=== PATIENT | female | born 1965 | race Caucasian/White ===

== ENCOUNTER 2023-11-27 13:50 | Inpatient (IN) ==
--- NOTE | 2023-11-27 14:19 | Emergency Department Note ---
Impression & Plan SBO (small bowel obstruction) ED Provider Note Name: KAREN MUELLER Age: 58 Sex: Female Arrives Via: Walk-In Informant: Patient ED Provider: Lalo Emmanuel MD Chief Complaint: Abdominal discomfort Impression: As per impressions above Medical Decision Making: Pleasant 58-year-old female with a history of Crohn's disease though not on any suppressive medications arrives for evaluation of severe abdominal pain. She does have remote history of bowel resections. On examination she has mild epigastric tenderness palpation hyperactive bowel sounds is mildly dehydrated. CT abdomen pelvis reveals partial small bowel obstruction versus ileus. Given her hyperactive bowel sounds and symptoms and history I think this is more consistent with a partial bowel obstruction. She was given some IV fluids though due to no vomiting we will hold off on NG tube at this time. Hospitalist consulted for further management. Triage/Nursing Notes reviewed by Me Differential:Gastroenteritis, food borne illness, infections, appendicitis, diverticulitis, inflammatory bowel disease, obstruction, GI bleed, biliary pathology, volvulus, as well as other pathologies. Vital Signs: reviewed and remarkable for no significant abnormalities Interventions: Normal Saline bolus 1 L IV Labs:ED labs Reviewed by me and remarkable for no significant abnormalities Imaging:CT of the abdomen pelvis without contrast as per my informal interpretation reveals small bowel obstruction. Radiologist notes likely small bowel obstruction without transition point and possibly ileus. Consults:[facility] hospitalist team was consulted and after discussion they will bring patient in. Plan: Disposition:Hospitalization. Condition: Good History of Present Illness: 58-year-old female arrives for evaluation of abdominal pain. Patient with 1 to 2 days of gradually worsening abdominal pain. Primarily upper abdomen and cramping in nature. Comes in waves. Overnight she was having severe cramping and stabbing pain. Associated with nausea and dry heaves. Notes she has had some diarrhea bowel movements the last few days as well but that is typical for her to have diarrhea. She denies any fevers, chills, rashes, syncope, chest pain, shortness of breath, other concerning signs or symptoms. She has a long history of Crohn's disease issues with bowel obstruction and small bowel removal many years ago. She has not been on any medications recently and had done quite well. Has not had any flareups recently either. No medications prior to arrival. Past Medical History:Crohn's disease Home Medications:No daily medications Allergies:No known drug allergy Vitals:Blood Pressure: 136/83, Pulse 108, RR 16, T 36.2C, O2 98% on RA Physical Exam: GENERAL: Patient is uncomfortable appearing and in mild distress. Dehydrated. Declines pain medications RESPIRATORY: No dyspnea. Clear to auscultation and equal bilaterally. CARDIOVASCULAR: Regular rate and rhythm.No murmur appreciated. GASTROINTESTINAL: Hyperactive bowel sounds over the upper abdomen with some mild tenderness to palpation. No peritonitis. Mild tenderness palpation in the left lower quadrant as well. EXTREMITIES: Normal motion all extremities, no cyanosis, no edema. NEUROLOGIC: Alert and oriented. No focal neurologic deficits appreciated SKIN: No rash, no jaundice, no diaphoresis. PSYCH: Appropriate GCS: 15 ED Course: Times/Reassessments: Patient's nausea is improved mild improvement in heart rate as well. No significant abdominal pain at this time. Lalo Emmanuel MD Past Med/Surg History Medical History Depression with anxiety HLD (hyperlipidemia) Migraine Crohn disease Surgical History Hx of myringotomy Hx of appendectomy Hx of unilateral oophorectomy History of bowel resection x 2 Family History Mother Coronary heart disease Father Hypertension Social History Smoking Status: Never smoker Hx Alcohol Use: No Hx Substance Use: No Preferred Language: Greek Communication Ability: Effective Electric Organ As[employer]er Required: No Beliefs That Will Affect Care: None Current Living Situation: Spouse current occupational status: employed current occupation: [employer] Feels Safe at Home: Yes Safety Concerns: Feels Safe At This Time Allergies Allergies Allergy/AdvReac Type Severity Reaction Status Date / Time Penicillins AdvReac Intermediate Vomiting Verified 11/27/23 16:25 Home Meds Home Medications Medication Instructions Recorded Confirmed amitriptyline 50 mg tablet 50 mg PO HS 11/27/23 11/27/23 atorvastatin 40 mg tablet 40 mg PO HS 11/27/23 11/27/23 gabapentin 100 mg capsule 300 mg PO HS 11/27/23 11/27/23 sertraline 100 mg tablet 100 mg PO HS 11/27/23 11/27/23 topiramate 100 mg capsule,extended 100 mg PO HS 11/27/23 11/27/23 release 24 hr venlafaxine 75 mg capsule,extended 75 mg PO HS 11/27/23 11/27/23 release 24 hr Results & Data (ED) Vital Signs Vital Signs - 24 hr 11/27/23 14:03 Pulse Rate 108 H Respiratory Rate 16 Respiratory Effort / Characteristics Non-Labored Accessory Muscle Use Respiratory Depth Normal Blood Pressure 136/83 Blood Pressure Mean 100 Blood Pressure Position Sitting Pulse Oximetry 98 Oxygen Delivery Method Room Air Sepsis Recent Fever Within 48 Hours No Sepsis New/Unexplained Change in Mental Status N/A Sepsis Action Taken by Nursing No Action Required Laboratory Data 11/28/23 06:32 11/28/23 06:32 Lab Results 11/27/23 11/27/23 Range/Units 14:31 14:35 WBC 10.47 (4.8-10.8) K/ul RBC 4.89 (4.20-5.40) M/uL Hgb 14.1 (12.0-16.0) g/dl POC Hgb 15.0 (12.0-16.0) g/dl Hct 44.2 (37.0-47.0) % POC Hct 44 (37-47) % MCV 90.4 (80.0-100.0) fL MCH 28.8 (25.0-34.0) pg MCHC 31.9 L (32.0-36.0) g/dL RDW Std Deviation 45.4 (36.4-46.3) fL RDW Coeff of Elvia 13.6 (11.5-14.5) % Plt Count 343 (130-400) K/uL MPV 9.5 (9.4-12.4) fL Immature Gran % (Auto) 0.4 % Neut % (Auto) 85.7 % Lymph % (Auto) 5.9 % [place] % (Auto) 5.6 % Eos % (Auto) 1.9 % Baso % (Auto) 0.5 % Neut # (Auto) 8.97 H (1.40-6.50) K/uL Lymph # (Auto) 0.62 L (1.20-3.40) K/uL [place] # (Auto) 0.59 (0.11-0.59) K/uL Eos # (Auto) 0.20 (0.00-0.50) K/uL Baso # (Auto) 0.05 (0.00-0.20) K/uL Immature Gran # (Auto) 0.04 (0.01-0.20) K/uL ESR 17 (0-30) mm/hr POC Sodium 144 (135-144) mmol/L Sodium 142 (136-145) mmol/L POC Potassium 3.8 (3.3-5.0) mmol/L Potassium 3.8 (3.5-5.1) mmol/L POC Chloride 107 (101-112) mmol/L Chloride 108 H (98-107) mmol/L Carbon Dioxide 25 (21-32) mmol/L POC Total CO2 25 (24-31) mmol/L Anion Gap 9 (3-11) POC Anion Gap 17.0 (16-25) mmol/L POC BUN 20 H (7-18) mg/dl BUN 21 (6-23) mg/dl Creatinine 1.05 (0.6-1.2) mg/dl POC Creatinine 1.1 (0.6-1.3) mg/dl Est Cr Clr Drug Dosing 46.2 ml/min Est GFR ( Amer) 67.8 ml/min Est GFR (Non-Af Amer) 58.5 ml/min BUN/Creatinine Ratio 20.0 (10-20) Glucose 130 H (70-99(Fasting)) mg/dl POC Glucose (other) 137 H (70-99) mg/dl Calcium 9.9 (8.6-10.3) mg/dl POC Ioniz Calcium Chelsey 1.28 (1.12-1.32) mmol/l Magnesium 1.9 (1.7-2.4) mg/dl Total Bilirubin 0.4 (0.2-1.0) mg/dl Direct Bilirubin 0.1 (0-0.2) mg/dl AST 21 (13-39) U/L ALT 26 (7-52) U/L Alkaline Phosphatase 90 (34-104) U/L C-Reactive Protein 0.66 H (0-0.5) mg/dl Total Protein 7.7 (6.0-8.3) gm/dl Albumin 4.7 (3.4-5.0) gm/dl Lipase 15 (11-82) U/L Administered Medications Amitriptyline HCl (Amitriptyline Hcl 50 Mg Tab) 50 mg PO HS JELANI Stop: 12/27/23 20:59 Last Admin: 11/27/23 19:38 Dose: 50 mg Documented By: RAVINDRA Atorvastatin Calcium (Atorvastatin 40 Mg Tab) 40 mg PO HS JELANI Stop: 12/27/23 20:59 Last Admin: 11/27/23 19:38 Dose: 40 mg Documented By: RAVINDRA Enoxaparin Sodium (Enoxaparin Inj 40 Mg/0.4 Ml Syr) 40 mg SQ Q24H JELANI Stop: 12/27/23 20:59 Last Admin: 11/27/23 19:38 Dose: 40 mg Documented By: RAVINDRA Gabapentin (Gabapentin 300 Mg Cap) 300 mg PO HS JELANI Stop: 12/27/23 20:59 Last Admin: 11/27/23 19:38 Dose: 300 mg Documented By: RAVINDRA Potassium Chloride/Sodium Chloride (Normal Saline W/20 Meq Kcl) 20 meq in 1,000 mls @ 100 mls/hr IV .Q10H JELANI; Protocol Stop: 12/27/23 18:32 Last Admin: 11/28/23 14:53 Dose: 100 mls/hr Documented By: Infusion: 11/28/23 14:13 Dose: Infused Documented By: Admin: 11/28/23 04:13 Dose: 100 mls/hr Documented By: Infusion: 11/28/23 04:13 Dose: Infused Documented By: Admin: 11/27/23 19:35 Dose: 100 mls/hr Documented By: RAVINDRA Acetaminophen (Ofirmev) 1,000 mg in 100 mls @ 400 mls/hr IV Q8H PRN PRN Reason: Mild-Mod Pain (Scale 1-6) Stop: 11/30/23 18:32 Last Infusion: 11/28/23 07:54 Dose: Infused Documented By: Admin: 11/28/23 07:39 Dose: 400 mls/hr Documented By: BO Ketorolac Tromethamine (Ketorolac Tromethamine 15 Mg/Ml Vial) 15 mg IV Q6H PRN PRN Reason: Headache or Pain Stop: 12/03/23 11:23 Last Admin: 11/28/23 11:56 Dose: 15 mg Documented By: BO Miscellaneous (Order Awaiting Action [Topiramate 100 Mg Capsule,Extended Release 24hr]) 1 each N/A QS JELANI Stop: 12/28/23 00:00 Last Admin: 11/28/23 14:56 Dose: Not Given Documented By: Admin: 11/28/23 07:09 Dose: Not Given Documented By: Admin: 11/27/23 23:24 Dose: Not Given Documented By: EGS Sertraline HCl (Sertraline Hcl 100 Mg Tablet) 100 mg PO [facility] Stop: 12/27/23 20:59 Last Admin: 11/27/23 19:38 Dose: 100 mg Documented By: EGCristofer Venlafaxine HCl (Venlafaxine Hcl Xr 75 Mg Capxr) 75 mg PO [facility] Stop: 12/27/23 20:59 Last Admin: 11/27/23 19:38 Dose: 75 mg Documented By: EGCristofer Discontinued Medications Sodium Chloride (Nss) 1,000 mls @ 999 mls/hr IV .Q1H1M ONE Stop: 11/27/23 15:17 Last Infusion: 11/27/23 15:41 Dose: Infused Documented By: Admin: 11/27/23 14:38 Dose: 999 mls/hr Documented By: SALVADOR Ioversol (Optiray 320 100ml) 94 ml IV ONCE ONE Stop: 11/27/23 14:52 Last Admin: 11/27/23 14:51 Dose: 94 ml Documented By: WILMA Discharge Plan Visit Data Chief Complaint: Abdominal Pain Stated Complaint: ABDOMINAL CRAMPING ED Provider: Lalo Emmanuel Discharge Problem: SBO (small bowel obstruction) Patient Disposition: Admitted As Inpatient Discharge Instructions Interventions: ED Discharge Assessment Last Done: 11/27/23 18:05
[2023-11-27] MEDS: SODIUM CHLORIDE 0.9% 1,000 ML IV ONE (14:38)
[2023-11-27 14:45] LABS: Basophils # (auto) 0.05 K/uL (0.00-0.20); Basophils % (auto) 0.5 %; Eosinophils % (auto) 1.9 %; Hematocrit (blood only) 44.2 % (37.0-47.0); Hemoglobin 14.1 g/dl (12.0-16.0); Immature Granulocytes # (auto) 0.04 K/uL (0.01-0.20); Immature Granulocytes % (auto) 0.4 %; Lymphocytes # (auto) 0.62 K/uL (1.20-3.40); Lymphocytes % (auto) 5.9 %; Mean Corpuscular Hemoglobin 28.8 pg (25.0-34.0); Mean Corpuscular Hgb Conc 31.9 g/dL (32.0-36.0); Mean Corpuscular Volume 90.4 fL (80.0-100.0); Mean Platelet Volume 9.5 fL (9.4-12.4); Monocytes # (auto) 0.59 K/uL (0.11-0.59); Monocytes % (auto) 5.6 %; Neutrophils # (auto) 8.97 K/uL (1.40-6.50); Neutrophils % (auto) 85.7 %; Platelet Count 343 K/uL (130-400); RDW Coefficient of Variation 13.6 % (11.5-14.5); RDW Standard Deviation 45.4 fL (36.4-46.3); Red Blood Count 4.89 M/uL (4.20-5.40); White Blood Count 10.47 K/ul (4.8-10.8)
[2023-11-27 14:50] LABS: iSTAT Creatinine 1.1 mg/dl (0.6-1.3); iSTAT Ionized Calcium 1.28 mmol/l (1.12-1.32); iSTAT Potassium 3.8 mmol/L (3.3-5.0)
[2023-11-27] MEDS: OPTIRAY 320 100ml IV ONE (14:51)
[2023-11-27 15:10] LABS: Albumin Level 4.7 gm/dl (3.4-5.0); Bilirubin Direct 0.1 mg/dl (0-0.2); Bilirubin,Total 0.4 mg/dl (0.2-1.0); C Reactive Protein 0.66 mg/dl (0-0.5); Calcium 9.9 mg/dl (8.6-10.3); Creatinine Clr Calc Pharmacy 46.2 ml/min; Est GFR (African American) 67.8 ml/min; Est GFR (Non-African American) 58.5 ml/min; Magnesium 1.9 mg/dl (1.7-2.4); Potassium 3.8 mmol/L (3.5-5.1); Total Protein 7.7 gm/dl (6.0-8.3)
--- NOTE | 2023-11-27 15:28 | CT Scan Report ---
CT abd pelvis IV con only CLINICAL HISTORY: diffuse upper abd pain, vomiting TECHNIQUE: Helical axial images of the abdomen and pelvis were obtained and displayed. Automated dose lowering techniques and/or adjustment according to patient size were utilized for this exam. This e xam was performed with intravenous contrast. CT DOSE: 541.14 mGy.cm COMPARISON: None available at the time of this dictation. FINDINGS: Lower chest: Bronchial wall thickening is seen. Liver: Unremarkable. No focal lesions are seen. Gallbladder and biliary tree: No calcified gallstones. Normal caliber wall. No intra- or extrahepatic biliary ductal dilation. Pancreas: Unremarkable, no focal lesions. Spleen: Splenule is incidentally noted. Adrenals: Unremarkable. Kidneys and ureters: Subcentimeter hypodensities are too small to characterize. There is a stone in t he left proximal ureter measuring 3 mm. No significant hydronephrosis is seen. Bladder: Limited evaluation due to underdistention. Reproductive organs: Unremarkable. Bowel: A hiatal hernia is seen. Post surgical changes of colonic resection are seen. There are multip le mildly prominent loops of small bowel without sharp transition point. Lymph nodes Retroperitoneal: Unremarkable. Pelvic: Unremarkable. Mesenteric: Unremarkable. Peritoneum: Normal. Vessels: Unremarkable. Abdominal wall: Unremarkable. Bones: Degenerative changes in the visualized spine. IMPRESSION: 1. Mildly prominent loops of small bowel throughout without sharp transition point. Findings may rep resent ileus versus partial small bowel obstruction. Of note, the large bowel is not under distended. 2. Bronchial wall thickening may represent infectious/inflammatory airways disease. ACT 112: Negative or not required by law. Electronically signed by: Maxwell Polanco M.D. 11/27/2023 3:26 PM
--- NOTE | 2023-11-27 16:43 | History & Physical Report ---
Date of Service November 27, 2023 Assessment & Plan (1) SBO (small bowel obstruction): (2) Crohn disease: (3) History of bowel resection: Plan This is a 58-year-old female who has a significant past medical history of hyperlipidemia, depression with anxiety and history of migraine who presents to ED secondary to abdominal pain x 2 to 3 days. --CT a/p: IMPRESSION: 1. Mildly prominent loops of small bowel throughout without sharp transition point. Findings may represent ileus versus partial small bowel obstruction. Of note, the large bowel is not under distended. SBO Crohn's disease History of bowel resection x 2, last in her 30s Admit to [facility] Consult general surgery Bowel rest N.p.o., IV fluid IV Tylenol for mild to moderate pain, IV morphine for severe pain She is passing loose stool which is chronic for her, but has not passed flatus No indication for NG tube at this time Currently she is not established with gastroenterology and has not received any treatment for her Crohn's for several years due to no issues Hyperlipidemia Chronic, stable History of migraines Continue Lamictal, amitriptyline Depression with anxiety Chronic, stable Continue Effexor and Zoloft DVT prophylaxis: Subcu Lovenox Full code PCP: Debby Moore with [facility] Dispo: Admit to medical Patient was seen and examined in collaboration with Dr. Harris, please see addendum A total of 60 minutes was spent coordinating, documenting, and providing care for this patient excluding time spent in the performance of separately billed services. This included personally viewing all current laboratories and imaging studies, medication reconciliation, outpatient chart review, and discussion with specialists. History of Present Illness Chief Complaint: Abd pain x 2-3 days. Primary Care Provider: Debby Moore This is a 58-year-old female who has a significant past medical history of hyperlipidemia, depression with anxiety and history of migraine who presents to ED secondary to abdominal pain x 2 to 3 days. Of significance she has prior history of Crohn's disease. She currently does not follow with a seat joiner or surgeon as this has been resolved for several years. She has prior history of bowel resection x 2, the last being over 30 years ago and done at [facility]. Due to her bowel resections she does have chronic diarrhea. She states pain is located all over her abdomen but worse on the left side. Pain waxes and wanes and describes it as, "being in labor." She has not passed gas over the last 2 days but she is moving her bowels as it is chronically watery. Her last bowel movement was around 11 AM. She feels her abdomen is overall distended. She does complain of being nauseated. She did make her cell vomit x 1 as she felt this would make her feel better. She complains of being chilled and sweats but denies any documented fever. She denies lightheadedness, dizziness, chest pain, shortness with, cough, URI sympt oms, melena or hematochezia. In ED patient remained hemodynamically stable. Her CBC and CMP was generally unremarkable. CT abdomen pelvis revealed mildly prominent loops of small bowel throughout without sharp transition point which may represent an ileus versus partial small bowel obstruction. Also noted is bronchial wall thickening may represent infectious/inflammatory airway disease. She denies any respiratory complaint. Allergies Allergy/AdvReac Type Severity Reaction Status Date / Time Penicillins AdvReac Intermediate Vomiting Verified 11/27/23 16:25 Home Medications Medication Instructions Recorded Confirmed Type amitriptyline 50 mg tablet 50 mg PO HS 11/27/23 11/27/23 History atorvastatin 40 mg tablet 40 mg PO HS 11/27/23 11/27/23 History gabapentin 100 mg capsule 300 mg PO HS 11/27/23 11/27/23 History sertraline 100 mg tablet 100 mg PO HS 11/27/23 11/27/23 History topiramate 100 mg capsule,extended 100 mg PO HS 11/27/23 11/27/23 History release 24 hr venlafaxine 75 mg capsule,extended 75 mg PO HS 11/27/23 11/27/23 History release 24 hr Past Med/Surg History Medical History (Updated 11/27/23 @ 17:00 by Nicki Uriostegui PA-C) Depression with anxiety HLD (hyperlipidemia) Migraine Crohn disease Surgical History (Updated 11/27/23 @ 17:00 by Nicki Uriostegui PA-C) Hx of myringotomy Hx of appendectomy Hx of unilateral oophorectomy History of bowel resection x 2 Family History (Updated 11/27/23 @ 16:42 by Nicki Uriostegui PA-C) Mother Coronary heart disease Father Hypertension Social History (Updated 11/27/23 @ 16:41 by Nicki Uriostegui PA-C) Smoking Status: Never smoker Hx Alcohol Use: Yes Hx Substance Use: No Preferred Language: Lao Communication Ability: Effective Current Living Situation: Spouse current occupational status: employed current occupation: [employer] Feels Safe at Home: Yes Review of Systems Review of Systems: All systems reviewed & are unremarkable except as noted in HPI & below Physical Exam Physical Exam: Constitutional: WD/WN, vitals as above, NAD, sitting up in bed, pleasant, conversing easily Head: Normocephalic, Atraumatic Eyes: PERRL, conjunctivae normal, anicteric sclerae ENMT: external ear and nose normal, oropharynx normal Neck: trachea midline, no thyromegaly normal visual inspection Respiratory: normal respiratory effort, lungs clear to auscultation, no wheeze, rales, rhonchi. Normal insp/exp effort, no accessory muscle use Cardiovascular: RRR, no murmur, no edema Vessels: no JVD or carotid bruit Chest: normal inspection of chest Abdomen: Absent bowel sounds, distended abdomen, TTP, no rebound, no guarding Musculoskeletal: no cyanosis or clubbing, extremities motor strength 5/5 Skin: no rashes, warm and dry normal turgor Neurologic: PERRL, EOMI, accommodation nl, no face palsy, no dysarthria CN's II-XI intact bilaterally and moves all extremities Psychiatric: A+Ox3, euthymic affect Lymphatic: no cervical or axillary lymphadenopathy : deferred Results & Data Results & Data Vital Signs (Past 12 Hours) Vital Signs Pulse Pulse Resp BP BP Pulse Ox O2 Del Method 11/27/23 16:10 96 H 18 134/85 95 Room Air 11/27/23 15:30 99 H 11/27/23 14:39 102 H 21 125/80 98 Room Air 11/27/23 14:03 108 H 16 136/83 98 Room Air Diagnostic Findings Abdomen/Pelvis CT 11/27/23 14:16 CT abd pelvis IV con only CLINICAL HISTORY: diffuse upper abd pain, vomiting TECHNIQUE: Helical axial images of the abdomen and pelvis were obtained and displayed. Automated dose lowering techniques and/or adjustment according to patient size were utilized for this exam. This exam was performed with intravenous contrast. CT DOSE: 541.14 mGy.cm COMPARISON: None available at the time of this dictation. FINDINGS: Lower chest: Bronchial wall thickening is seen. Liver: Unremarkable. No focal lesions are seen. Gallbladder and biliary tree: No calcified gallstones. Normal caliber wall. No intra- or extrahepatic biliary ductal dilation. Pancreas: Unremarkable, no focal lesions. Spleen: Splenule is incidentally noted. Adrenals: Unremarkable. Kidneys and ureters: Subcentimeter hypodensities are too small to characterize. There is a stone in the left proximal ureter measuring 3 mm. No significant hydronephrosis is seen. Bladder: Limited evaluation due to underdistention. Reproductive organs: Unremarkable. Bowel: A hiatal hernia is seen. Post surgical changes of colonic resection are seen. There are multiple mildly prominent loops of small bowel without sharp transition point. Lymph nodes Retroperitoneal: Unremarkable. Pelvic: Unremarkable. Mesenteric: Unremarkable. Peritoneum: Normal. Vessels: Unremarkable. Abdominal wall: Unremarkable. Bones: Degenerative changes in the visualized spine. IMPRESSION: 1. Mildly prominent loops of small bowel throughout without sharp transition point. Findings may represent ileus versus partial small bowel obstruction. Of note, the large bowel is not under distended. 2. Bronchial wall thickening may represent infectious/inflammatory airways disease. ACT 112: Negative or not required by law. Electronically signed by: Maxwell Polanco M.D. 11/27/2023 3:26 PM Medications Administered Medication List Discontinued Medications Sodium Chloride (Nss) 1,000 mls @ 999 mls/hr IV .Q1H1M ONE Stop: 11/27/23 15:17 Last Infusion: 11/27/23 15:41 Dose: Infused Documented By: Admin: 11/27/23 14:38 Dose: 999 mls/hr Documented By: SALVADOR Ioversol (Optiray 320 100ml) 94 ml IV ONCE ONE Stop: 11/27/23 14:52 Last Admin: 11/27/23 14:51 Dose: 94 ml Documented By: WILMA COVID-19 Results Results COVID-19 Adm Lab Results: RBC 4.89 M/uL (4.20-5.40) 11/27/23 WBC 10.47 K/ul (4.8-10.8) 11/27/23 Hgb 14.1 g/dl (12.0-16.0) 11/27/23 Hct 44.2 % (37.0-47.0) 11/27/23 Plt Count 343 K/uL (130-400) 11/27/23 Neutrophils (%) (Auto) 85.7 % 11/27/23 Lymphocytes (%) (Auto) 5.9 % 11/27/23 Monocytes # (Auto) 0.59 K/uL (0.11-0.59) 11/27/23 Eosinophils # (Auto) 0.20 K/uL (0.00-0.50) 11/27/23 Immature Granulocyte % (Auto) 0.4 % 11/27/23 Neutrophils # (Auto) 8.97 K/uL (1.40-6.50) H 11/27/23 Lymphocytes # (Auto) 0.62 K/uL (1.20-3.40) L 11/27/23 Monocytes # (Auto) 0.59 K/uL (0.11-0.59) 11/27/23 Eosinophils # (Auto) 0.20 K/uL (0.00-0.50) 11/27/23 Basophils # (Auto) 0.05 K/uL (0.00-0.20) 11/27/23 Immature Granulocyte # (Auto) 0.04 K/uL (0.01-0.20) 4 Na 142 mmol/L (136-145) 11/27/23 K 3.8 mmol/L (3.5-5.1) 11/27/23 Cl 108 mmol/L (98-107) H 11/27/23 CO2 25 mmol/L (21-32) 11/27/23 Anion Gap 9 (3-11) 11/27/23 BUN 21 mg/dl (6-23) 11/27/23 Creatinine 1.05 mg/dl (0.6-1.2) 11/27/23 BUN/Creatinine Ratio 20.0 (10-20) 11/27/23 Glucose Level 130 mg/dl (70-99(Fasting)) H 11/27/23 Ca 9.9 mg/dl (8.6-10.3) 11/27/23 Total Bilirubin 0.4 mg/dl (0.2-1.0) 11/27/23 Direct Bilirubin 0.1 mg/dl (0-0.2) 11/27/23 AST/SGOT 21 U/L (13-39) 11/27/23 ALT/SGPT 26 U/L (7-52) 11/27/23 Alkaline Phosphatase 90 U/L (34-104) 11/27/23 Total Protein 7.7 gm/dl (6.0-8.3) 11/27/23 Albumin 4.7 gm/dl (3.4-5.0) 11/27/23 CRP 0.66 mg/dl (0-0.5) H 11/27/23 Code Status & VTE Plan Code Status FULL CODE VTE Prophylaxis Plan VTE Prophylaxis will be ordered: Yes Supervising Physician Co-Signing Physician Notes Patient was seen and examined with Nicki SARMIENTO at bedside. Chart reviewed. Case discussed with Nicki SARMIENTO and agree with the documentation above. In summary, this is a 58 year old female with h/o Crohn's disease s/p bowel resection who presented with abdominal pain and being admitted for partial SBO. CT A/P reviewed. Labs reviewed. Vitals stable. Will continue conservative management with bowel rest, npo, ivf, pain meds, antiemetic prn, gen surgery consult. On exam- General: Lying comfortably in bed, not in distress, on room air HEENT: EOMI, OBIE, MMM Chest: Clear breath sounds bilaterally, no wheezes or crackles CVS: Regular rate and rhythm, normal heart sounds, no murmur Abdomen: Soft, LLQ tender, not distended, hypoactive bowel sounds Neuro: Awake, alert, oriented, conversing well, non focal Extremities: No cyanosis, clubbing or edema Rest as per the note above.
[2023-11-27] MEDS ORDERED: ONDANSETRON INJ 2 MG/ML 2 ML VIAL IV PRN (18:33)
[2023-11-27] MEDS ORDERED: MoRPHine SULFATE 4 MG/ML 1 ML CARP\\VIAL IV PRN (18:33)
[2023-11-27] MEDS: NSS + 20MEQ KCL 20 MEQ/1,000 ML BAG IV SCH (19:35)
[2023-11-27] MEDS: AMITRIPTYLINE HCL 50 MG TAB PO SCH (19:38)
[2023-11-27] MEDS: VENLAFAXINE HCL XR 75 MG CAPXR PO SCH (19:38)
[2023-11-27] MEDS: ATORVASTATIN 40 MG TAB PO SCH (19:38)
[2023-11-27] MEDS: ENOXAPARIN INJ 40 MG/0.4 ML SYR SQ SCH (19:38)
[2023-11-27] MEDS: GABAPENTIN 300 MG CAP PO SCH (19:38)
[2023-11-27] MEDS: SERTRALINE HCL 100 MG TABLET PO SCH (19:38)
[2023-11-28 06:58] LABS: Basophils # (auto) 0.05 K/uL (0.00-0.20); Basophils % (auto) 0.8 %; Eosinophils # (auto) 0.54 K/uL (0.00-0.50); Eosinophils % (auto) 8.2 %; Hematocrit (blood only) 38.2 % (37.0-47.0); Immature Granulocytes # (auto) 0.01 K/uL (0.01-0.20); Immature Granulocytes % (auto) 0.2 %; Lymphocytes # (auto) 1.35 K/uL (1.20-3.40); Lymphocytes % (auto) 20.5 %; Mean Corpuscular Hemoglobin 28.8 pg (25.0-34.0); Mean Corpuscular Hgb Conc 31.4 g/dL (32.0-36.0); Mean Corpuscular Volume 91.6 fL (80.0-100.0); Mean Platelet Volume 9.4 fL (9.4-12.4); Monocytes # (auto) 0.58 K/uL (0.11-0.59); Monocytes % (auto) 8.8 %; Neutrophils # (auto) 4.04 K/uL (1.40-6.50); Neutrophils % (auto) 61.5 %; Platelet Count 271 K/uL (130-400); RDW Standard Deviation 47.1 fL (36.4-46.3); Red Blood Count 4.17 M/uL (4.20-5.40); White Blood Count 6.57 K/ul (4.8-10.8)
[2023-11-28 07:19] LABS: Albumin Globulin Ratio 1.6 (0.9-2); Albumin Level 3.6 gm/dl (3.4-5.0); BUN Creatinine Ratio 17.7 (10-20); Bilirubin,Total 0.5 mg/dl (0.2-1.0); Calcium 8.1 mg/dl (8.6-10.3); Creatinine Clr Calc Pharmacy 61.4 ml/min; Est GFR (African American) 95.6 ml/min; Est GFR (Non-African American) 82.5 ml/min; Estimated Average Glucose 111 mg/dl; Globulin 2.3 gm/dl (2.5-4.0); Hemoglobin A1C 5.5 % (4.5-5.6); Magnesium 1.8 mg/dl (1.7-2.4); Potassium 4.1 mmol/L (3.5-5.1); Total Protein 5.9 gm/dl (6.0-8.3)
[2023-11-28] MEDS: ACETAMINOPHEN 1,000 MG/100 ML VIAL IV PRN (07:39)
--- NOTE | 2023-11-28 11:00 | Surgery Consultation ---
Date of Consultation November 28, 2023 Assessment & Plan (1) Abdominal pain: 58-year-old woman with a history of Crohn's disease who presents with abdominal pain and nausea. She notes chronic loose stools but feels that her stool and gas output was less than typical. Her pain has now resolved and she feels as th ough her abdomen is back to baseline. Her CT scan does show dilated loops of small bowel but no transition point. She would like to go home. We discussed that I feel that this may be too quick as she still has high-pitched bowel tones on exam and her abdomen is distended. However she feels as though her abdomen is back to baseline. I would recommend considering GI evaluation to see if this is a flare of her Crohn's. Could consider advancement of diet to see if she tolerates. There is no sign of a surgical abdomen or indication for surgical intervention at this point. History of Present Illness Reason for Consultation: abdominal pain Requesting Physician: Dr. Bill MD Attending Physician: Chivo Khan MD History of Present Illness 58-year-old woman with a history of Crohn's disease who presents to the emergency room with abdominal pain which has been going on for few days. She is status post 2 prior bowel resections with the last over 30 years ago. She notes chronic loose stools since that time as well as an abdomen that generally does feel bloated. However she developed abdominal pain on Wednesday which she initially thought was related to eating. On Wednesday she felt well during the day but Wednesday night, the pain came back and increased. She felt quite nauseated and made herself vomit. She had bilious output from the vomiting. As the pain was diffuse and crampy and of moderate to severe intensity, she presented to the emergency room for further evaluation. She is still passing gas. She has still been having stools but notes that these are decreased relative to her normal frequency. Her last bowel movement was around 11:00 this morning. She states that her abdomen feels better since she has been in the hospital. Currently she has mild discomfort that she thinks is more like her baseline. Allergies Allergy/AdvReac Type Severity Reaction Status Date / Time Penicillins AdvReac Intermediate Vomiting Verified 11/27/23 16:25 Home Medications Medication Instructions Recorded Confirmed Type amitriptyline 50 mg tablet 50 mg PO HS 11/27/23 11/27/23 History atorvastatin 40 mg tablet 40 mg PO HS 11/27/23 11/27/23 History gabapentin 100 mg capsule 300 mg PO HS 11/27/23 11/27/23 History sertraline 100 mg tablet 100 mg PO HS 11/27/23 11/27/23 History topiramate 100 mg capsule,extended 100 mg PO HS 11/27/23 11/27/23 History release 24 hr venlafaxine 75 mg capsule,extended 75 mg PO HS 11/27/23 11/27/23 History release 24 hr Patient History Medical History Depression with anxiety HLD (hyperlipidemia) Migraine Crohn disease Surgical History Hx of myringotomy Hx of appendectomy Hx of unilateral oophorectomy History of bowel resection x 2 Family History Mother Coronary heart disease Father Hypertension Social History Smoking Status: Never smoker Hx Alcohol Use: No Hx Substance Use: No Preferred Language: [place] Communication Ability: Effective Recreation Coordinator Required: No Beliefs That Will Affect Care: None Current Living Situation: Spouse current occupational status: employed current occupation: [employer] Feels Safe at Home: Yes Safety Concerns: Feels Safe At This Time Review of Systems Review of Systems: All systems reviewed & are unremarkable except as noted in HPI & below Physical Exam Constitutional: WD/WN, vitals as above Eyes: + anicteric sclerae Respiratory: normal respiratory effort, lungs clear to auscultation Cardiovascular: RRR, no murmur, no edema Gastrointestinal (Abdomen): Inspection/Auscultation: + abdomen distended (moderate), + abdominal surgical scar (midline) and + high-pitched sounds Percussion/Palpation: + abdomen tender (mild in mid abdomen) Musculoskeletal: no cyanosis or clubbing, extremities motor strength 5/5 Neurologic: awake; no focal motor deficits Results & Data Vital Signs (Past 12 Hours) Vital Signs Temp Pulse Resp BP Pulse Ox O2 Del Method 11/28/23 07:06 36.8 C 93 H 15 113/75 97 Room Air Laboratory Results 11/28/23 11/27/23 11/27/23 Range/Units 06:32 14:35 14:31 WBC 6.57 10.47 (4.8-10.8) K/ul RBC 4.17 L 4.89 (4.20-5.40) M/uL Hgb 12.0 14.1 (12.0-16.0) g/dl POC Hgb 15.0 (12.0-16.0) g/dl Hct 38.2 44.2 (37.0-47.0) % POC Hct 44 (37-47) % MCV 91.6 90.4 (80.0-100.0) fL MCH 28.8 28.8 (25.0-34.0) pg MCHC 31.4 L 31.9 L (32.0-36.0) g/dL RDW Std Deviation 47.1 H 45.4 (36.4-46.3) fL RDW Coeff of Elvia 14.0 13.6 (11.5-14.5) % Plt Count 271 343 (130-400) K/uL MPV 9.4 9.5 (9.4-12.4) fL Immature Gran % (Auto) 0.2 0.4 % Neut % (Auto) 61.5 85.7 % Lymph % (Auto) 20.5 5.9 % [place] % (Auto) 8.8 5.6 % Eos % (Auto) 8.2 1.9 % Baso % (Auto) 0.8 0.5 % Neut # (Auto) 4.04 8.97 H (1.40-6.50) K/uL Lymph # (Auto) 1.35 0.62 L (1.20-3.40) K/uL [place] # (Auto) 0.58 0.59 (0.11-0.59) K/uL Eos # (Auto) 0.54 H 0.20 (0.00-0.50) K/uL Baso # (Auto) 0.05 0.05 (0.00-0.20) K/uL Immature Gran # (Auto) 0.01 0.04 (0.01-0.20) K/uL ESR 17 (0-30) mm/hr POC Sodium 144 (135-144) mmol/L Sodium 142 142 (136-145) mmol/L POC Potassium 3.8 (3.3-5.0) mmol/L Potassium 4.1 3.8 (3.5-5.1) mmol/L POC Chloride 107 (101-112) mmol/L Chloride 118 H 108 H (98-107) mmol/L Carbon Dioxide 20 L 25 (21-32) mmol/L POC Total CO2 25 (24-31) mmol/L Anion Gap 4 9 (3-11) POC Anion Gap 17.0 (16-25) mmol/L POC BUN 20 H (7-18) mg/dl BUN 14 21 (6-23) mg/dl Creatinine 0.79 1.05 (0.6-1.2) mg/dl POC Creatinine 1.1 (0.6-1.3) mg/dl Est Cr Clr Drug Dosing 61.4 46.2 ml/min Est GFR ( Amer) 95.6 67.8 ml/min Est GFR (Non-Af Amer) 82.5 58.5 ml/min BUN/Creatinine Ratio 17.7 20.0 (10-20) Glucose 95 130 H (70-99(Fasting)) mg/dl POC Glucose (other) 137 H (70-99) mg/dl Estimat Average Glucose 111 mg/dl Hemoglobin A1c 5.5 (4.5-5.6) % Calcium 8.1 L 9.9 (8.6-10.3) mg/dl POC Ioniz Calcium Chelsey 1.28 (1.12-1.32) mmol/l Magnesium 1.8 1.9 (1.7-2.4) mg/dl Total Bilirubin 0.5 0.4 (0.2-1.0) mg/dl Direct Bilirubin 0.1 (0-0.2) mg/dl AST 14 21 (13-39) U/L ALT 16 26 (7-52) U/L Alkaline Phosphatase 70 90 (34-104) U/L C-Reactive Protein 0.66 H (0-0.5) mg/dl Total Protein 5.9 L D 7.7 (6.0-8.3) gm/dl Albumin 3.6 4.7 (3.4-5.0) gm/dl Globulin 2.3 L (2.5-4.0) gm/dl Albumin/Globulin Ratio 1.6 (0.9-2) Lipase 15 (11-82) U/L Diagnostic Findings CT abd pelvis IV con only CLINICAL HISTORY: diffuse upper abd pain, vomiting TECHNIQUE: Helical axial images of the abdomen and pelvis were obtained and displayed. Automated dose lowering techniques and/or adjustment according to patient size were utilized for this exam. This exam was performed with intravenous contrast. CT DOSE: 541.14 mGy.cm COMPARISON: None available at the time of this dictation. FINDINGS: Lower chest: Bronchial wall thickening is seen. Liver: Unremarkable. No focal lesions are seen. Gallbladder and biliary tree: No calcified gallstones. Normal caliber wall. No intra- or extrahepatic biliary ductal dilation. Pancreas: Unremarkable, no focal lesions. Spleen: Splenule is incidentally noted. Adrenals: Unremarkable. Kidneys and ureters: Subcentimeter hypodensities are too small to characterize. There is a stone in the left proximal ureter measuring 3 mm. No significant hydronephrosis is seen. Bladder: Limited evaluation due to underdistention. Reproductive organs: Unremarkable. Bowel: A hiatal hernia is seen. Post surgical changes of colonic resection are seen. There are multiple mildly prominent loops of small bowel without sharp transition point. Lymph nodes Retroperitoneal: Unremarkable. Pelvic: Unremarkable. Mesenteric: Unremarkable. Peritoneum: Normal. Vessels: Unremarkable. Abdominal wall: Unremarkable. Bones: Degenerative changes in the visualized spine. IMPRESSION: 1. Mildly prominent loops of small bowel throughout without sharp transition point. Findings may represent ileus versus partial small bowel obstruction. Of note, the large bowel is not under distended. 2. Bronchial wall thickening may represent infectious/inflammatory airways disease. ACT 112: Negative or not required by law.
[2023-11-28] MEDS: KETOROLAC TROMETHAMINE 15 MG/ML VIAL IV PRN (11:56)
--- NOTE | 2023-11-28 15:30 | Hospitalist Progress Note ---
Date of Service November 28, 2023 Assessment & Plan (1) SBO (small bowel obstruction): (2) Crohn disease: (3) History of bowel resection: Plan This is a 58-year-old female who has a significant past medical history of hyperlipidemia, depression with anxiety and history of migraine who presents to ED secondary to abdominal pain x 2 to 3 days. --CT a/p: IMPRESSION: 1. Mildly prominent loops of small bowel throughout without sharp transition point. Findings may represent ileus versus partial small bowel obstruction. Of note, the large bowel is not under distended. SBO Crohn's disease History of bowel resection x 2, last in her 30s Consult general surgery Bowel rest N.p.o., IV fluid IV Tylenol for mild to moderate pain, IV morphine for severe pain She is passing loose stool which is chronic for her, but has not passed flatus No indication for NG tube at this time Currently she is not established with gastroenterology and has not received any treatment for her Crohn's for several years due to no issues Appreciate surgery input and recommendation to start diet as tolerated She has been feeling much better without any significant abdominal pain or distention CRP has been minimally high at 0.66-doubt any flare of Crohn's disease Will advised to have outpatient GI evaluation following discharge Will start clears orally and advance as tolerated Likely discharge tomorrow Hyperlipidemia Chronic, stable History of migraines Continue Lamictal, amitriptyline Depression with anxiety Chronic, stable Continue Effexor and Zoloft DVT prophylaxis: Subcu Lovenox Full code PCP: Debby Moore with [facility] Dispo: Admit to medical Admission and Anticipated Discharge Date Admission Date: November 27, 2023 Subjective 11/28/2023 The patient was seen and examined in medical floor She was admitted with SBO/ileus with history of Crohn's disease Has been feeling much better and denies any more abdominal pain and moving bowel Does not have any increase in diarrhea or any blood in the stool and no fever and or chills no extraintestinal manifestations of Crohn's disease Review of Systems Review of Systems: All systems reviewed and are unremarkable except as noted below Physical Exam Physical Exam: Lying in bed anxiously but without any distress Constitutional: + ill appearing and average body habitus Eyes: PERRL, conjunctivae normal, anicteric sclerae ENMT: external ear and nose normal, oropharynx normal Neck: trachea midline, no thyromegaly Respiratory: no respiratory distress Auscultation: lungs clear to auscultation bilaterally Cardiovascular: Rate/Rhythm: regular rate and regular rhythm; not tachycardic Heart Sounds: normal S1 and normal S2; no murmur Extremities: no edema Gastrointestinal (Abdomen): Inspection/Auscultation: + abdomen distended (Mildly distended) and normal bowel sounds Percussion/Palpation: + abdomen tender (Mildly tender) and abdomen soft Musculoskeletal: No acute arthritis involving any of the joint Neurologic: normal touch/pain/proprioception and moves all extremities; no focal motor deficits Psychiatric: A+Ox3, euthymic affect Lymphatic: no cervical or axillary lymphadenopathy Results & Data Results & Data Vital Signs (Past 12 Hours) Vital Signs Temp Pulse Resp BP Pulse Ox O2 Del Method 11/28/23 14:35 36.2 C L 99 H 14 121/77 98 Room Air 11/28/23 07:06 36.8 C 93 H 15 113/75 97 Room Air Laboratory Results Short CBC 11/28/23 Range/Units 06:32 WBC 6.57 (4.8-10.8) K/ul Hgb 12.0 (12.0-16.0) g/dl Hct 38.2 (37.0-47.0) % Plt Count 271 (130-400) K/uL BMP 11/28/23 06:32 Sodium 142 Potassium 4.1 Chloride 118 H Carbon Dioxide 20 L BUN 14 Creatinine 0.79 Glucose 95 Calcium 8.1 L Liver Function 11/28/23 Range/Units 06:32 Total Bilirubin 0.5 (0.2-1.0) mg/dl AST 14 (13-39) U/L ALT 16 (7-52) U/L Alkaline Phosphatase 70 (34-104) U/L Albumin 3.6 (3.4-5.0) gm/dl Medications Administered Current Inpatient Medications Amitriptyline HCl (Amitriptyline Hcl 50 Mg Tab) 50 mg PO HS JELANI Stop: 12/27/23 20:59 Last Admin: 11/27/23 19:38 Dose: 50 mg Atorvastatin Calcium (Atorvastatin 40 Mg Tab) 40 mg PO HS JELANI Stop: 12/27/23 20:59 Last Admin: 11/27/23 19:38 Dose: 40 mg Enoxaparin Sodium (Enoxaparin Inj 40 Mg/0.4 Ml Syr) 40 mg SQ Q24H JELANI Stop: 12/27/23 20:59 Last Admin: 11/27/23 19:38 Dose: 40 mg Gabapentin (Gabapentin 300 Mg Cap) 300 mg PO HS JELANI Stop: 12/27/23 20:59 Last Admin: 11/27/23 19:38 Dose: 300 mg Potassium Chloride/Sodium Chloride (Normal Saline W/20 Meq Kcl) 20 meq in 1,000 mls @ 100 mls/hr IV .Q10H JELANI; Protocol Stop: 12/27/23 18:32 Last Admin: 11/28/23 14:53 Dose: 100 mls/hr Acetaminophen (Ofirmev) 1,000 mg in 100 mls @ 400 mls/hr IV Q8H PRN PRN Reason: Mild-Mod Pain (Scale 1-6) Stop: 11/30/23 18:32 Last Infusion: 11/28/23 07:54 Dose: Infused Ketorolac Tromethamine (Ketorolac Tromethamine 15 Mg/Ml Vial) 15 mg IV Q6H PRN PRN Reason: Headache or Pain Stop: 12/03/23 11:23 Last Admin: 11/28/23 11:56 Dose: 15 mg Miscellaneous (Order Awaiting Action [Topiramate 100 Mg Capsule,Extended Release 24hr]) 1 each N/A QS [facility] Stop: 12/28/23 00:00 Last Admin: 11/28/23 14:56 Dose: Not Given Morphine Sulfate (Morphine Sulfate 4 Mg/Ml 1 Ml Carp\Vial) 4 mg IV Q6H PRN PRN Reason: Severe Pain (Scale 7, 8, 9,10) Stop: 12/11/23 18:32 Ondansetron HCl (Ondansetron Inj 2 Mg/Ml 2 Ml Vial) 4 mg IV Q6H PRN PRN Reason: Nausea Stop: 12/27/23 18:32 Sertraline HCl (Sertraline Hcl 100 Mg Tablet) 100 mg PO HS [facility] Stop: 12/27/23 20:59 Last Admin: 11/27/23 19:38 Dose: 100 mg Venlafaxine HCl (Venlafaxine Hcl Xr 75 Mg Capxr) 75 mg PO HS [facility] Stop: 12/27/23 20:59 Last Admin: 11/27/23 19:38 Dose: 75 mg
--- NOTE | 2023-11-28 18:11 | XRay Report ---
XR KUB/Abdomen 1 view CLINICAL HISTORY: sbo TECHNIQUE: 1 view of the abdomen was obtained. Comparison: Comparison is made to CT abdomen pelvis 11/27/2023 FINDINGS: Lung bases are unremarkable. The osseous structures are grossly unremarkable. Multiple dilated loops of small bowel are seen. Small stool burden is seen concentrated in the cecum. IMPRESSION: Findings are compatible with continued small bowel obstruction. ACT 112: Negative or not required by law. Electronically signed by: Maxwell Polanco M.D. 11/28/2023 6:09 PM
[2023-11-29 07:16] LABS: BUN Creatinine Ratio 11.8 (10-20); C Reactive Protein 1.09 mg/dl (0-0.5); Calcium 8.1 mg/dl (8.6-10.3); Creatinine Clr Calc Pharmacy 63.8 ml/min; Est GFR (African American) 100.2 ml/min; Est GFR (Non-African American) 86.5 ml/min; Magnesium 1.7 mg/dl (1.7-2.4); Potassium 4.2 mmol/L (3.5-5.1)
[2023-11-29 08:06] LABS: Hematocrit (blood only) 40.6 % (37.0-47.0); Hemoglobin 12.1 g/dl (12.0-16.0); Mean Corpuscular Hemoglobin 28.4 pg (25.0-34.0); Mean Corpuscular Hgb Conc 29.8 g/dL (32.0-36.0); Mean Corpuscular Volume 95.3 fL (80.0-100.0); Mean Platelet Volume 10.1 fL (9.4-12.4); Platelet Count 222 K/uL (130-400); RDW Coefficient of Variation 13.4 % (11.5-14.5); RDW Standard Deviation 47.6 fL (36.4-46.3); Red Blood Count 4.26 M/uL (4.20-5.40); White Blood Count 7.25 K/ul (4.8-10.8)
[2023-11-29 08:07] LABS: Basophils # (auto) 0.04 K/uL (0.00-0.20); Basophils % (auto) 0.6 %; Echinocytes 3+; Eosinophils # (auto) 0.33 K/uL (0.00-0.50); Eosinophils % (auto) 4.6 %; Immature Granulocytes # (auto) 0.03 K/uL (0.01-0.20); Immature Granulocytes % (auto) 0.4 %; Lymphocytes # (auto) 1.08 K/uL (1.20-3.40); Lymphocytes % (auto) 14.9 %; Monocytes # (auto) 0.69 K/uL (0.11-0.59); Monocytes % (auto) 9.5 %; Neutrophils # (auto) 5.08 K/uL (1.40-6.50); Platelet Estimate Normal (Normal)
[2023-11-29] MEDS ORDERED: SODIUM PHOSPHATE 3 MMOL/1 ML 5 ML VIAL IV ONE (08:40)
[2023-11-29] MEDS: SODIUM PHOSPHATE 24 MMOL in SODIUM CHLORIDE 0.9% 500 ML IV ONE (09:37)
--- NOTE | 2023-11-29 11:26 | Surgery Progress Note ---
Date of Service November 29, 2023 Assessment & Plan (1) Abdominal pain: Plan: 58-year-old woman with a history of Crohn's disease who presents with abdominal pain and nausea. She notes chronic loose stools but feels that her stool and gas output was less than typical. Her pain has now resolved and she feels as though her abdomen is back to baseline. Her CT scan does show dilated loops of small bowel but no transition point. I would recommend considering GI evaluation to see if this is a flare of her Crohn's. advance diet as tolerated. There is no sign of a surgical abdomen or indication for surgical intervention at this point. Admission and Anticipated Discharge Date Admission Date: November 27, 2023 Subjective feeling better; no nausea/vomiting; passing flatus, tolerating diet Physical Exam Physical Exam: NAD, A&Ox3 AFVSS Abd soft, NTND Results & Data Vital Signs (Past 12 Hours) Vital Signs Temp Pulse Resp BP Pulse Ox O2 Del Method 11/29/23 07:29 36.5 C 95 H 18 143/82 H 98 Room Air
--- NOTE | 2023-11-29 15:02 | Hospitalist Progress Note ---
Date of Service November 29, 2023 Assessment & Plan (1) SBO (small bowel obstruction): (2) Crohn disease: (3) History of bowel resection: Plan This is a 58-year-old female who has a significant past medical history of hyperlipidemia, depression with anxiety and history of migraine who presents to ED secondary to abdominal pain x 2 to 3 days. --CT a/p: IMPRESSION: 1. Mildly prominent loops of small bowel throughout without sharp transition point. Findings may represent ileus versus partial small bowel obstruction. Of note, the large bowel is not under distended. SBO Crohn's disease History of bowel resection x 2, last in her 30s Consult general surgery Bowel rest N.p.o., IV fluid IV Tylenol for mild to moderate pain, IV morphine for severe pain She is passing loose stool which is chronic for her, but has not passed flatus No indication for NG tube at this time Currently she is not established with gastroenterology and has not received any treatment for her Crohn's for several years due to no issues Appreciate surgery input and recommendation to start diet as tolerated She has been feeling much better without any significant abdominal pain or distention CRP has been minimally high at 0.66-doubt any flare of Crohn's disease Will advised to have outpatient GI evaluation following discharge Will start clears orally and advance as tolerated Clinically much better and does not have any GI symptoms-no distention, b loating, pain, nausea and or vomiting Tolerating regular diet and moving bowels He will be discharged home this afternoon Strongly advised to have a GI follow-up as an outpatient Hyperlipidemia Chronic, stable History of migraines Continue Lamictal, amitriptyline Depression with anxiety Chronic, stable Continue Effexor and Zoloft DVT prophylaxis: Subcu Lovenox Full code PCP: Debby Moore with [facility] Dispo: Admit to medical Admission and Anticipated Discharge Date Admission Date: November 27, 2023 Subjective 11/28/2023 The patient was seen and examined in medical floor She was admitted with SBO/ileus with history of Crohn's disease Has been feeling much better and denies any more abdominal pain and moving bowel Does not have any increase in diarrhea or any blood in the stool and no fever and or chills no extraintestinal manifestations of Crohn's disease Review of Systems Review of Systems: All systems reviewed and are unremarkable except as noted below Physical Exam Physical Exam: Lying in bed anxiously but without any distress Constitutional: + ill appearing and average body habitus Eyes: PERRL, conjunctivae normal, anicteric sclerae ENMT: external ear and nose normal, oropharynx normal Neck: trachea midline, no thyromegaly Respiratory: no respiratory distress Auscultation: lungs clear to auscultation bilaterally Cardiovascular: Rate/Rhythm: regular rate and regular rhythm; not tachycardic Heart Sounds: normal S1 and normal S2; no murmur Extremities: no edema Gastrointestinal (Abdomen): Inspection/Auscultation: + abdomen distended (Mildly distended) and normal bowel sounds Percussion/Palpation: + abdomen tender (Mildly tender) and abdomen soft Neurologic: normal touch/pain/proprioception and moves all extremities; no focal motor deficits Psychiatric: A+Ox3, euthymic affect Lymphatic: no cervical or axillary lymphadenopathy Results & Data Results & Data Vital Signs (Past 12 Hours) Vital Signs Temp Pulse Resp BP Pulse Ox O2 Del Method 11/29/23 07:29 36.5 C 95 H 18 143/82 H 98 Room Air Laboratory Results Short CBC 11/29/23 Range/Units 06:17 WBC 7.25 (4.8-10.8) K/ul Hgb 12.1 (12.0-16.0) g/dl Hct 40.6 (37.0-47.0) % Plt Count 222 (130-400) K/uL BMP 11/29/23 06:17 Sodium 140 Potassium 4.2 Chloride 116 H Carbon Dioxide 19 L BUN 9 Creatinine 0.76 Glucose 84 Calcium 8.1 L Medications Administered Current Inpatient Medications Amitriptyline HCl (Amitriptyline Hcl 50 Mg Tab) 50 mg PO HS JELANI Stop: 12/27/23 20:59 Last Admin: 11/28/23 22:00 Dose: 50 mg Atorvastatin Calcium (Atorvastatin 40 Mg Tab) 40 mg PO HS JELANI Stop: 12/27/23 20:59 Last Admin: 11/28/23 22:00 Dose: 40 mg Enoxaparin Sodium (Enoxaparin Inj 40 Mg/0.4 Ml Syr) 40 mg SQ Q24H JELANI Stop: 12/27/23 20:59 Last Admin: 11/28/23 22:00 Dose: 40 mg Gabapentin (Gabapentin 300 Mg Cap) 300 mg PO HS JELANI Stop: 12/27/23 20:59 Last Admin: 11/28/23 22:00 Dose: 300 mg Potassium Chloride/Sodium Chloride (Normal Saline W/20 Meq Kcl) 20 meq in 1,000 mls @ 100 mls/hr IV .Q10H JELANI; Protocol Stop: 12/27/23 18:32 Last Admin: 11/29/23 10:57 Dose: 100 mls/hr Acetaminophen (Ofirmev) 1,000 mg in 100 mls @ 400 mls/hr IV Q8H PRN PRN Reason: Mild-Mod Pain (Scale 1-6) Stop: 11/30/23 18:32 Last Infusion: 11/28/23 22:26 Dose: Infused Ketorolac Tromethamine (Ketorolac Tromethamine 15 Mg/Ml Vial) 15 mg IV Q6H PRN PRN Reason: Headache or Pain Stop: 12/03/23 11:23 Last Admin: 11/28/23 11:56 Dose: 15 mg Miscellaneous (Order Awaiting Action [Topiramate 100 Mg Capsule,Extended Release 24hr]) 1 each N/A QS JELANI Stop: 12/28/23 00:00 Last Admin: 11/29/23 07:56 Dose: Not Given Morphine Sulfate (Morphine Sulfate 4 Mg/Ml 1 Ml Carp\Vial) 4 mg IV Q6H PRN PRN Reason: Severe Pain (Scale 7, 8, 9,10) Stop: 12/11/23 18:32 Ondansetron HCl (Ondansetron Inj 2 Mg/Ml 2 Ml Vial) 4 mg IV Q6H PRN PRN Reason: Nausea Stop: 12/27/23 18:32 Sertraline HCl (Sertraline Hcl 100 Mg Tablet) 100 mg PO HS [facility] Stop: 12/27/23 20:59 Last Admin: 11/28/23 22:00 Dose: 100 mg Venlafaxine HCl (Venlafaxine Hcl Xr 75 Mg Capxr) 75 mg PO HS JELANI Stop: 12/27/23 20:59 Last Admin: 11/28/23 22:00 Dose: 75 mg
--- NOTE | 2023-11-30 17:12 | Discharge Summary ---
Date of Service November 29, 2023 Admission HPI Per Admitting Provider This is a 58-year-old female who has a significant past medical history of hyperlipidemia, depression with anxiety and history of migraine who presents to ED secondary to abdominal pain x 2 to 3 days. Of significance she has prior history of Crohn's disease. She currently does not follow with a assembler semiconductor or surgeon as this has been resolved for several years. She has prior history of bowel resection x 2, the last being over 30 years ago and done at [facility]. Due to her bowel resections she does have chronic diarrhea. She states pain is located all over her abdomen but worse on the left side. Pain waxes and wanes and describes it as, "being in labor." She has not passed gas over the last 2 days but she is moving her bowels as it is chronically watery. Her last bowel movement was around 11 AM. She feels her abdomen is overall distended. She does complain of being nauseated. She did make her cell vomit x 1 as she felt this would make her feel better. She complains of being chilled and sweats but denies any documented fever. She denies lightheadedness, dizziness, chest pain, shortness with, cough, URI symptoms, melena or hematochezia. In ED patient remained hemodynamically stable. Her CBC and CMP was generally unremarkable. CT abdomen pelvis revealed mildly prominent loops of small bowel throughout without sharp transition point which may represent an ileus versus partial small bowel obstruction. Also noted is bronchial wall thickening may represent infectious/inflammatory airway disease. She denies any respiratory complaint. Admission Exam Per Admitting Provider Physical Exam: Constitutional: WD/WN, vitals as above, NAD, sitting up in bed, pleasant, c onversing easily Head: Normocephalic, Atraumatic Eyes: PERRL, conjunctivae normal, anicteric sclerae ENMT: external ear and nose normal, oropharynx normal Neck: trachea midline, no thyromegaly normal visual inspection Respiratory: normal respiratory effort, lungs clear to auscultation, no wheeze, rales, rhonchi. Normal insp/exp effort, no accessory muscle use Cardiovascular: RRR, no murmur, no edema Vessels: no JVD or carotid bruit Chest: normal inspection of chest Abdomen: Absent bowel sounds, distended abdomen, TTP, no rebound, no guarding Musculoskeletal: no cyanosis or clubbing, extremities motor strength 5/5 Skin: no rashes, warm and dry normal turgor Neurologic: PERRL, EOMI, accommodation nl, no face palsy, no dysarthria CN's II-XI intact bilaterally and moves all extremities Psychiatric: A+Ox3, euthymic affect Lymphatic: no cervical or axillary lymphadenopathy : deferred Principal Diagnosis Partial SBO, history of Crohn's disease Discharge Exam Lying in bed anxiously but without any distress Constitutional + ill appearing and average body habitus Eyes PERRL, conjunctivae normal, anicteric sclerae ENMT external ear and nose normal, oropharynx normal Neck trachea midline, no thyromegaly Respiratory no respiratory distress Auscultation: lungs clear to auscultation bilaterally Cardiovascular Rate/Rhythm: regular rate and regular rhythm; not tachycardic Heart Sounds: normal S1 and normal S2; no murmur Extremities: no edema Gastrointestinal (Abdomen) Inspection/Auscultation: + abdomen distended (Mildly distended) and normal bowel sounds Percussion/Palpation: + abdomen tender (Mildly tender) and abdomen soft Neurologic normal touch/pain/proprioception and moves all extremities; no focal motor deficits Psychiatric A+Ox3, euthymic affect Lymphatic no cervical or axillary lymphadenopathy Discharge Data Allergies Allergy/AdvReac Type Severity Reaction Status Date / Time Penicillins AdvReac Intermediate Vomiting Verified 11/27/23 16:25 Consultations 11/27/23 16:19 ED Decision to Admit Stat 11/27/23 16:21 Consult General Surgery Routine Ordered Studies 11/27/23 14:16 CT abd pelvis IV con only Stat Hospital Course (1) SBO (small bowel obstruction): (2) Crohn disease: (3) History of bowel resection: Plan This is a 58-year-old female who has a significant past medical history of hyperlipidemia, depression with anxiety and history of migraine who presents to ED secondary to abdominal pain x 2 to 3 days. --CT a/p: IMPRESSION: 1. Mildly prominent loops of small bowel throughout without sharp transition point. Findings may represent ileus versus partial small bowel obstruction. Of note, the large bowel is not under distended. SBO Crohn's disease History of bowel resection x 2, last in her 30s Consult general surgery Bowel rest N.p.o., IV fluid IV Tylenol for mild to moderate pain, IV morphine for severe pain She is passing loose stool which is chronic for her, but has not passed flatus No indication for NG tube at this time Currently she is not established with gastroenterology and has not received any treatment for her Crohn's for several years due to no issues Appreciate surgery input and recommendation to start diet as tolerated She has been feeling much better without any significant abdominal pain or distention CRP has been minimally high at 0.66-doubt any flare of Crohn's disease Will advised to have outpatient GI evaluation following discharge Will start clears orally and advance as tolerated Clinically much better and does not have any GI symptoms-no distention, bloating, pain, nausea and or vomiting Tolerating regular diet and moving bowels He will be discharged home this afternoon Strongly advised to have a GI follow-up as an outpatient Hyperlipidemia Chronic, stable History of migraines Continue Lamictal, amitriptyline Depression with anxiety Chronic, stable Continue Effexor and Zoloft DVT prophylaxis: Subcu Lovenox Full code PCP: Debby Moore with [facility] Dispo: Admit to medical Total Time Total Time Spent Total Time Spent (In Minutes): 40 minutes Discharge Plan Discharge Items Patient Disposition: Home - Self-Care Reason For Visit: PARTIAL SBO Discharge Diagnosis: Partial SBO, history of Crohn's disease Condition on Discharge: Fair Activity: Resume your previous activity Non-emergency contact: Primary Care Provider Call non-emergency contact if: you have any medication questions and your symptoms worsen Follow-up/Referrals: Debby Moore PA-C [Primary Care Provider] - (Your doctor's office will give you a call with an appointment within 7 days) Diet: Low Fiber Addtl Attending Provider Instructions: No change in the medication Try to drink more fluid and continue with low fiber diet Please keep appointment due to healthcare provider You will need to see a assembler semiconductor as soon as possible to check on your Crohn's disease Pending Studies at Discharge: No Stand-Alone Forms: My [employer], Smoking Cessation Medications and DC Order Prescriptions: Continued atorvastatin 40 mg tablet 40 mg PO HS venlafaxine 75 mg capsule,extended release 24hr 75 mg PO HS sertraline 100 mg tablet 100 mg PO HS amitriptyline 50 mg tablet 50 mg PO HS gabapentin 100 mg capsule 300 mg PO HS topiramate 100 mg capsule,extended release 24hr 100 mg PO HS Discharge Orders: Discharge Order (Routine); Ordered 11/29/23 Ordered By: Chivo Duncan/Other Patient Handouts: Low-Fiber Diet, What Is Crohn's Disease Admission Data Admit Date/Time: 11/27/23 16:21 Attending Provider: Chivo Khan Admit Provider: London Harris Primary Care Provider: Debby Moore Other Providers: Emily Amezcua; London Harris Other Interventions: Discharge Summary Assessment (RN) Last Done: 11/29/23 16:05
== END 2023-11-29 17:13 | disposition home or self-care (01) | DRG 387 ==
LOC: ED 13:50 → EDINP 16:21 → SUATTDRO 16:21 → 3W 18:05